=== PATIENT | female | born 1995 | race Caucasian/White ===

== ENCOUNTER 2022-08-21 07:57 | Emergency (ER) | payer BC, SELFPAY ==
[2022-08-21 08:03] VITALS: BP 158/90; PULSE 103; RESP 18; TEMP 36.7; O2SAT 99
--- NOTE | 2022-08-21 08:07 | W.ED.GENAD ---
Discharge Plan Disposition Patient Disposition: Home Condition: Stable Discharge Details Clinical Impression: Left foot pain Primary Care Provider: Adilene Wheatley ED Provider: Abiodun Sterling Home Meds and New Rx's Prescriptions: New indomethacin 50 mg capsule 50 mg PO TID 5 Days Qty: 15 0RF Rx Instructions: administer with food or milk Continued etonogestrel-ethinyl estradiol [NuvaRing] 1 EACH ring 1 ea VG every 3 weeks Qty: 3 Rx Instructions: insert 1 ring vaginally every 3 weeks then remove for period epinephrine [EpiPen 2-Ramón] 0.3 MG/0.3 ML auto-injector 1 applic IM PRN Qty: 1 12RF Discharge Instructions Care Plan Goals: X-ray is unremarkable. Indomethacin as directed. Wear walking boot as needed, advance activity as tolerated. Rest, elevate, cool and/or warm compresses every 2 hours for 20 minutes. Please watch for new or worsening symptoms and return to the ER for any concerns. Lastly, if symptoms not improving with conservative measures over the next 3-5 days, please follow-up with your primary care provider. Medical Decision Making This is a 26-year-old female who denies significant past medical history, did fracture her left ankle as a teenager but has no sequelae, presents to the ER reporting left foot pain that began upon waking yesterday morning. She denies any obvious trauma. She denies fever, swelling, redness, other joint pain. No history of gout. Patient does state she does wear high heels several times a week. Does wonder about bone spurs. Took ibuprofen this morning. Clinically she appears well, nontoxic. She is afebrile. There is no calf pain or swelling. There is no erythema, warmth. The pain begins at the first left MTP joint and goes in a bandlike fashion proximally along the superior and medial aspect. This would appear more of a tendinitis or inflammatory process as opposed to an acute bony injury, infectious process, intra-articular process such as gout, etc. Plan is to obtain x-ray and reassess. X-ray unremarkable. At this time I see no clear indication to obtain CBC, uric acid, perform joint aspiration, etc. This does not appear to solely be within the joint space, works its way up the foot. Patient reports no significant relief with ibuprofen. We discussed options. We will place into a short walking boot and provide short-term prescription of indomethacin, will give first dose now. She has crutches at home to use if necessary. We discussed other conservative measures. She does understand that if symptoms or not improving with conservative measures they are further evaluation such as joint aspiration may be required. Standard discharge and return precautions were provided. Patient understands, is agreeable to this plan, and has no additional questions or concerns upon discharge. This documentation was generated using [employer] system, please disregard any oddities of phrase or misspellings. Medical Records Medical records reviewed: Yes I reviewed the patient's medical records. Imaging Data Radiologic Study: Attestation: I personally reviewed and interpreted this imaging study as follows: Imaging: X-Ray Radiologist's impression: Exam(s) XR FOOT LT COMPLETE EXAM: XR FOOT LT COMPLETE CLINICAL HISTORY: pain. TECHNIQUE: 2D digital imaging was performed of the left foot. Three images were obtained. AP, oblique and lateral views were obtained. COMPARISON: CR LEFT ANKLE 2 VIEW from 09/25/2010 FINDINGS: BONES: No acute fracture is present. No bony destructive lesion is seen. There is a tiny osseous density adjacent to the posterior malleolus of the ankle. It appears well corticated suggesting an old injury. There is a small enthesophyte at the Achilles insertion site. There is mild spurring at the talonavicular joint. JOINTS: No dislocation present. SOFT TISSUE: Normal. IMPRESSION: No acute abnormality. HPI General Mode of arrival: ambulatory. Date/Time Provider Initiated Documentation: 08/21/22 08:06. Limitations to Documentation: no limitations. Information obtained by: patient and family. History of Present Illness 26 year old F presents to the emergency department with the chief complaint of L foot pain, described as moderate, with intensity rated at 7. Quality is described as aching, and is localized to the left and lower extremity. Patient reports no radiation. Patient started experiencing this day(s) (1) and it has been constant. Immobilization improves symptom(s), Movement worsens symptoms . Patient notes no other symptoms.. Patient did receive the following treatments prior to arrival, NSAID Related Data Home Medications Medication Instructions Recorded Confirmed etonogestrel 0.12 mg-ethinyl 1 ea vaginal every 3 weeks ##3 03/22/17 08/21/22 estradiol 0.015 mg/24 hr vaginal ring (NuvaRing) epinephrine 0.3 mg/0.3 mL 1 applic IM PRN ##1 07/15/17 08/21/22 injection, auto-injector (EpiPen 2-Ramón) indomethacin 50 mg capsule 50 mg PO TID 5 days #15 caps 08/21/22 Previous Rx's Medication Instructions Recorded epinephrine 0.3 mg/0.3 mL 1 applic IM PRN ##1 07/15/17 injection, auto-injector (EpiPen 2-Ramón) indomethacin 50 mg capsule 50 mg PO TID 5 days #15 caps 08/21/22 Allergies Allergy/AdvReac Type Severity Reaction Status Date / Time amoxicillin trihydrate Allergy crazy Unverified 03/22/17 08:43 [From Augmentin] acting doxycycline Allergy body Unverified 03/22/17 08:43 hives grape Allergy throat Unverified 03/22/17 08:43 closes levalbuterol HCl Allergy itching Unverified 03/22/17 08:43 [From Xopenex] around cheek and neck areas potassium clavulanate Allergy crazy Unverified 03/22/17 08:43 [From Augmentin] acting shellfish derived Allergy throat Unverified 03/22/17 08:43 closes tree nut [Tree Nut] Allergy Unverified 03/22/17 08:43 Review of Systems Constitutional Constitutional: Denies fever(s) and Denies weakness Cardiovascular Cardiovascular: Denies chest pain and Denies dyspnea Respiratory Respiratory: Denies dyspnea Musculoskeletal Musculoskeletal: Reports arthralgias, Denies joint swelling, Denies numbness, Reports stiffness and Denies tingling Integumentary/Breasts Skin/Breast: Denies erythema Neurologic Neurologic: Denies numbness, Denies tingling and Denies weakness PFSH All Active Problems (Updated 08/21/22 @ 10:03 by ANGELI Bae) Left foot pain (Acute) Medical History Ankle fracture, left History of chicken pox age 5 years/mom hypermobility joint syndrome seen by PT and has exercises for knees Scapular fracture Family History Mother Multiple environmental allergies Multiple food allergies Asthma Father Essential hypertension Other Migraines mat aunt Diabetes MGF Essential hypertension MGF, MGM, PGF, PGM, pat uncle in his 20's Personal history of malignant neoplasm PGM-lung Brother Multiple environmental allergies Asthma Social History Smoking/Tobacco Use Status: Never Smoking risk assessment performed?: Yes Alcohol Intake: current Alcohol Intake frequency: a few times a month Alcohol type: other Drug use: Never Do you feel safe at home: Yes Do you feel safe in your relationship?: Yes Exam Const General: cooperative, healthy appearing, comfortable and no acute distress Orientation: alert and awake [facility] Head: normal to inspection, normocephalic and atraumatic Eyes Conjunctivae: conjunctivae normal Neck Neck: normal visual inspection, full ROM, trachea midline and supple Resp Effort & Inspection: normal respiratory effort and able to speak in complete sentences Cardio Rate: regular rate Rhythm: regular rhythm Skin General skin exam: no rashes or lesions noted Neuro General: patient alert, patient awake, moves all extremities and no focal motor deficits Cognition: normal cognition Speech: speech normal Gait: antalgic Sensory Exam: no sensory deficits noted Extrem General: normal to inspection, full ROM and capillary refill normal Ankle/foot/toe images: 1. Diffuse tenderness. Normal visual inspection without erythema, swelling. Skin is intact. There is no warmth. Neuro, vascular, tendon intact. Normal capillary refill and pedal pulse. Psych Appearance: grossly normal Mental Status: mental status grossly normal
--- NOTE | 2022-08-21 08:15 | DI.RAD_ITS ---
Exam(s) XR FOOT LT COMPLETE EXAM: XR FOOT LT COMPLETE CLINICAL HISTORY: pain. TECHNIQUE: 2D digital imaging was performed of the left foot. Three images were obtained. AP, obli que and lateral views were obtained. COMPARISON: CR LEFT ANKLE 2 VIEW from 09/25/2010 FINDINGS: BONES: No acute fracture is present. No bony destructive lesion is seen. There is a tiny osseous dens ity adjacent to the posterior malleolus of the ankle. It appears well corticated suggesting an old i njury. There is a small enthesophyte at the Achilles insertion site. There is mild spurring at the talonavicular joint. JOINTS: No dislocation present. SOFT TISSUE: Normal. IMPRESSION: No acute abnormality. DATA REPOSITORY: RADIATION DOSE DELIVERED:
--- NOTE | 2022-08-21 08:39 | NUR.NOTE ---
Nursing Note: Pt to and return from DI for ordered exam, no change in complaints.
[2022-08-21 09:27] VITALS: BP 146/90; PULSE 82; RESP 19; TEMP 36.7; O2SAT 98
[2022-08-21] MEDS: Indomethacin 25 MG CAP 50 MG PO (10:03)
[2022-08-21 10:13] VITALS: BP 141/88; PULSE 77; RESP 18; O2SAT 98
--- NOTE | 2022-08-24 08:34 | NUR.NOTE ---
Nursing Note:Accessed chart for [facility] billing purposes.
== END 2022-08-21 10:16 | disposition home or self-care (01) ==
PROVIDERS: Emergency Provider Physician Assistant; PCP Family Medicine
DX: M79.672 Pain in left foot (principal)
CPT/HCPCS: 99283; 73630; 99284

== ENCOUNTER → 2024-02-17 09:26 | Outpatient (CLI) | payer BC, SELFPAY ==
--- NOTE | 2024-02-17 16:15 | DI.RAD_ITS ---
Exam(s) XR WRIST LT COMPLETE EXAM: XR WRIST LT COMPLETE CLINICAL HISTORY: M25.532 Pain left wrist,evaluate pathology. TECHNIQUE: 2D digital imaging was performed. COMPARISON: No exams were available for comparison FINDINGS: 3 views No evidence of fracture or dislocation nor significant ulnar variance. Bone density normal. Scaphoi d and scapholunate distance normal. No radiopaque foreign body. IMPRESSION: No acute osseous findings in the wrist. DATA REPOSITORY: RADIATION DOSE DELIVERED:
--- NOTE | 2024-02-17 16:57 | DI.VRAD_ITS ---
PROCEDURE INFORMATION: Exam: XR Left Wrist Exam date and time: 02/17/2024 4:32 PM Age: 28 years old Clinical indication: Pain; Wrist; Left TECHNIQUE: Imaging protocol: Radiologic exam of the left wrist. Views: 3 or more views. COMPARISON: No relevant prior studies available. FINDINGS: Bones/joints: Normal. Soft tissues: Normal. IMPRESSION: No acute findings. Dictated and Authenticated by: Oscar Lay MD. Ordering:GIULIANO Greenwood MD
== END ==
PROVIDERS: PCP Family Medicine; Visit Provider Nurse Practitioner Family
DX: M25.532 Pain in left wrist (principal)
CPT/HCPCS: 73110